=== PATIENT | female | born 1970 | race Caucasian/White ===

== ENCOUNTER → 2024-08-08 | Outpatient (CLI) | payer OTHER, BC, SELFPAY ==
--- NOTE | 2024-08-08 16:15 | XR_ITS ---
MRI shoulder, right, without contrast. Date and time: August 08, 2024, 1700 hours Comparison November 20, 2019 INDICATIONS: Anterior shoulder pain joint locking stiffness swelling beginning 6 months ago, history right shoulder surgery 2021 Technique: Multiple axial, sagittal and coronal sections of the shoulder have been obtained. Siemens high-resolution 1.5 [employer] MRI scanner is utilized. Axial fat-suppressed sections, TR 2350, TE 18 T2-weighted coronal fat-saturated images, TR 3500, TE 7100 T1-weighted coronal images, TR 500, TE 15 T2-weighted sagittal fat-saturated images, TR 3500, TE 57 T1-weighted sagittal sections, TR 504, TE 13. Findings: Supraspinatus tendon insertion is abnormal, 8 mm partial-thickness articular surface tear. Infraspinatus tendon insertion is intact. Subscapularis insertion is intact. Subscapularis bursa is not seen Long head of the biceps is in the bicipital groove. No definite tear of the biceps superior labral anchor is seen. Retraction of the musculotendinous junction of the rotator cuff is not seen . Tendinosis pattern is mild. Distance between the acromium and humeral head is 5.6 mm Atrophy of the supraspinatus muscle is moderate. Atrophy of the infraspinatus muscle is mild. Sagittal sections demonstrate a horizontal acromion. Acromioclavicular joint demonstrates mild osteoarthritis . Osacromiale is not identified. No labral tear. Bony glenoid fossa on the sagittal sections does not demonstrate osseous defect. Occult fracture or area of avascular necrosis is not seen. Acromioclavicular joint separation is not visible. Defect in the posterolateral margin of the humeral head is not seen Impression: 8 mm partial-thickness articular surface tear supraspinatus
== END | disposition home or self-care (01) ==
PROVIDERS: PCP Family Medicine; Referring Provider Family Medicine; Visit Provider Family Medicine
DX: M75.101 Unspecified rotator cuff tear or rupture of right shoulder, not specified as traumatic (principal)
CPT/HCPCS: 73221